=== PATIENT | male | born 1940 | race Caucasian/White ===

== ENCOUNTER → 2019-04-07 | Outpatient (CLI) | payer MEDICARE ==
--- NOTE | 2019-04-07 12:46 | PCVCIMAG ---
EXAM: BILATERAL CAROTID DUPLEX INDICATION: Carotid Occlusive Disease. FINDINGS: Doppler Measurements (centimeters per second): RIGHT: Peak CCA-37, Peak ECA-206, Diastolic ICA-69, Peak ICA-406, ICA/CCA Ratio-10.8. LEFT: Peak CCA-66, Peak ECA-181, Diastolic ICA-23, Peak ICA-125, ICA/CCA Ratio-1.9. RIGHT CAROTID: The carotid bulb has moderately severe plaque. The proximal internal carotid artery shows greater than 90% stenosis. The common carotid artery shows no significant stenosis. The external carotid artery shows 60% stenosis. LEFT CAROTID: The carotid bulb has moderate plaque. The proximal internal carotid artery shows 40% stenosis. The common carotid artery shows no significant stenosis. The external carotid artery shows 60% stenosis. Antegrade flow in both vertebral arteries. IMPRESSION: Greater than 90% stenosis of the right internal carotid artery with moderately severe plaque. 40% stenosis of the left internal carotid artery with moderate plaque. LOC:[place] [id number]
--- NOTE | 2019-04-07 13:06 | PCVCIMAG ---
EXAM: BILATERAL LOWER EXTREMITY ARTERIAL DUPLEX INDICATION: Peripheral Arterial Disease. Leg pain. FINDINGS: Right Leg: Common femoral and profunda femoral arteries are patent. 60% stenosis mid [place] superficial femoral artery. Previous mid/distal superficial femoral artery maintaining adequate patency. Popliteal artery is patent. The tibioperoneal trunk, peroneal, and proximal posterior tibial arteries are occluded. Previous stent proximal anterior tibial artery is patent. Anterior tibial artery shows adequate patency throughout. Left Leg: Common femoral and profunda femoral arteries are patent. Interval development of increased systolic velocity 583 cm/s mid/distal superficial femoral artery in the mid portion of prior stent consistent with 95% stenosis. This area was patent on previous angiogram January 2019. Popliteal-mid anterior tibial artery bypass is patent. Remainder of the mid/distal anterior tibial artery is patent. Occlusion of the posterior tibial artery. Proximal peroneal artery also occluded. IMPRESSION: Unchanged 60% stenosis mid [place] left superficial femoral artery. Previous mid/distal right superficial femoral artery stents maintaining adequate patency at site of previous revision. Previous proximal right anterior tibial artery stent maintaining satisfactory patency. Since January 2019 angiogram 95% stenosis mid/distal superficial femoral artery the midportion of a prior stent has developed. Previous left popliteal-mid anterior tibial artery bypass is patent. Previous site of intervention distal left anterior tibial artery maintaining satisfactory patency. LOC:[id number]
== END | disposition home or self-care (01) ==
LOC: PCVCIMAG 10:25
PROVIDERS: ATTEND Nuclear Medicine Nuclear Cardiology
DX: I65.23 Occlusion and stenosis of bilateral carotid arteries (principal)
CPT/HCPCS: 93880; 93925

== ENCOUNTER → 2019-04-08 | Outpatient (CLI) | payer MEDICARE | END | disposition home or self-care (01) | LOC: PCVCCLINIC 11:00 | PROVIDERS: ATTEND Nuclear Medicine Nuclear Cardiology | DX: I73.9 Peripheral vascular disease, unspecified (principal); I70.1 Atherosclerosis of renal artery; I10 Essential (primary) hypertension; E78.00 Pure hypercholesterolemia, unspecified; E11.9 Type 2 diabetes mellitus without complications; I48.91 Unspecified atrial fibrillation; K21.9 Gastro-esophageal reflux disease without esophagitis; Z87.891 Personal history of nicotine dependence | CPT/HCPCS: G0463 ==